=== PATIENT | male | born 1950 | race African-American/Black ===

== ENCOUNTER 2017-08-22 19:45 | Inpatient (IN) ==
[2017-08-22] MEDS ORDERED: DEXTROSE 50% 25 GM/50 ML VIAL IV PRN (20:40)
[2017-08-22] MEDS ORDERED: GLUCAGON 1 MG VIAL IM PRN (20:40)
[2017-08-22 21:03] LABS: ABG PCO2 40.5 MM HG (35-48); ABG PO2 85.6 MM HG (80-95); Allen Test Positive
[2017-08-22 21:04] LABS: ABG Base Excess 0.3 MMOL/L (-2.5-2.5); ABG HCO3 24.7 MMOL/L (20-26); ABG Oxygen Saturation 96.9 % (95-100)
[2017-08-22 21:23] LABS: Basophils % 0.6 % (0.0-0.8); Eosinophils # 0.1 10*3/uL (0.0-0.87); Eosinophils % 2.5 % (0.00-10.9); Hematocrit 37.7 VOL% (42.0-52.0); Hemoglobin 12.7 GM/DL (14.0-18.0); Immature Granulocytes % 0.2 %; Immature Granulocytes Absolute 0.01 #; Lymphocytes # 1.8 10*3/uL (1.4-4.0); Lymphocytes % 35.9 % (21.2-54.2); Mean Corpuscular HGB Conc 33.7 GM/DL (32-36); Mean Corpuscular Hemoglobin 28 PG (27-34); Mean Platelet Volume 10.4 FL (9.6-12.0); Monocytes # 0.3 10*3/uL (0.11-0.8); Monocytes % 5.8 % (1.7-12.7); Neutrophils # 2.8 10*3/uL (1.4-7.4); Platelet Count 154 T/CUMM (130-400); Red Blood Count 4.49 MC/CUMM (3.8-5.5); White Blood Count 5.1 T/CUMM (4-12)
[2017-08-22 21:49] LABS: Calcium 8.7 MG/DL (8.5-10.1); Osmolality,Calculated 283.8 MOS/KG (273-304); Potassium 4.1 MMOL/L (3.5-5.1); Troponin I Only 0.098 NG/ML (0.00-0.045)
[2017-08-22] MEDS: INSULIN REGULAR 100 UNIT/ML SUBCUT SCH (21:49)
[2017-08-22] MEDS: GABAPENTIN 300 MG CAPSULE PO SCH (21:49)
[2017-08-23] MEDS: INSULIN REGULAR 100 UNIT/ML SUBCUT SCH ×4 (08:18→21:48)
[2017-08-23] MEDS: GABAPENTIN 300 MG CAPSULE PO SCH ×2 (08:18→21:48)
[2017-08-23] MEDS: LISINOPRIL/HCTZ 20-25 MG TABLET PO SCH (08:18)
[2017-08-23] MEDS: chlordiazePOXIDE 10 MG CAPSULE PO SCH ×2 (11:16→21:48)
[2017-08-23] MEDS: SODIUM CHLORIDE 0.9% 1,000 ML IV SCH (22:16)
[2017-08-24] MEDS: ENOXAPARIN 40 MG/0.4 ML SYRINGE SUBCUT SCH (05:24)
[2017-08-24 06:09] LABS: Basophils % 0.9 % (0.0-0.8); Eosinophils # 0.1 10*3/uL (0.0-0.87); Eosinophils % 2.3 % (0.00-10.9); Hematocrit 37.3 VOL% (42.0-52.0); Hemoglobin 12.8 GM/DL (14.0-18.0); Immature Granulocytes % 0.2 %; Immature Granulocytes Absolute 0.01 #; Lymphocytes % 42.8 % (21.2-54.2); Mean Corpuscular HGB Conc 34.3 GM/DL (32-36); Mean Corpuscular Hemoglobin 29 PG (27-34); Mean Corpuscular Volume 83.1 FL (87-102); Mean Platelet Volume 10.5 FL (9.6-12.0); Monocytes # 0.4 10*3/uL (0.11-0.8); Monocytes % 8.5 % (1.7-12.7); Neutrophils # 2.1 10*3/uL (1.4-7.4); Neutrophils % 45.3 % (38.7-73.9); Platelet Count 172 T/CUMM (130-400); Red Blood Count 4.49 MC/CUMM (3.8-5.5); Red Cell Distribution Width 13.1 % (9.3-17.3); White Blood Count 4.7 T/CUMM (4-12)
[2017-08-24 06:26] LABS: Albumin 2.7 G/DL (3.4-5.0); Bilirubin,Total 0.4 MG/DL (0.2-1.0); Calcium 8.5 MG/DL (8.5-10.1); Osmolality,Calculated 289.7 MOS/KG (273-304); Potassium 4.2 MMOL/L (3.5-5.1); Total Protein 6.4 G/DL (6.4-8.3)
[2017-08-24] MEDS: GABAPENTIN 300 MG CAPSULE PO SCH ×2 (08:24→20:34)
[2017-08-24] MEDS: chlordiazePOXIDE 10 MG CAPSULE PO SCH ×2 (08:24→20:34)
[2017-08-24] MEDS: INSULIN REGULAR 100 UNIT/ML SUBCUT SCH ×4 (08:25→20:33)
[2017-08-24] MEDS: LISINOPRIL/HCTZ 20-25 MG TABLET PO SCH (08:27)
[2017-08-24] MEDS: SODIUM CHLORIDE 0.9% 1,000 ML IV SCH (15:33)
[2017-08-24] MEDS: DOCUSATE SODIUM 100 MG CAPSULE PO SCH ×2 (16:23→20:34)
[2017-08-24] MEDS ORDERED: metFORMIN 500 MG TABLET PO SCH (17:00)
[2017-08-24] MEDS: CARVEDILOL 3.125 MG TABLET PO SCH (20:34)
[2017-08-24] MEDS ORDERED: GABAPENTIN 300 MG CAPSULE PO SCH (21:00)
[2017-08-24] MEDS ORDERED: INSULIN GLARGINE 100 UNIT/ML SUBCUT SCH (21:00)
[2017-08-25] MEDS: ENOXAPARIN 40 MG/0.4 ML SYRINGE SUBCUT SCH (04:26)
[2017-08-25 05:18] LABS: Basophils % 0.5 % (0.0-0.8); Eosinophils # 0.1 10*3/uL (0.0-0.87); Eosinophils % 2.2 % (0.00-10.9); Hematocrit 36.2 VOL% (42.0-52.0); Hemoglobin 12.1 GM/DL (14.0-18.0); Immature Granulocytes % 0.2 %; Immature Granulocytes Absolute 0.01 #; Lymphocytes # 2.2 10*3/uL (1.4-4.0); Lymphocytes % 40.5 % (21.2-54.2); Mean Corpuscular HGB Conc 33.4 GM/DL (32-36); Mean Corpuscular Hemoglobin 28 PG (27-34); Mean Corpuscular Volume 84.8 FL (87-102); Mean Platelet Volume 10.2 FL (9.6-12.0); Monocytes # 0.5 10*3/uL (0.11-0.8); Monocytes % 8.5 % (1.7-12.7); Neutrophils # 2.7 10*3/uL (1.4-7.4); Neutrophils % 48.1 % (38.7-73.9); Platelet Count 158 T/CUMM (130-400); Red Blood Count 4.27 MC/CUMM (3.8-5.5); Red Cell Distribution Width 13.2 % (9.3-17.3); White Blood Count 5.5 T/CUMM (4-12)
[2017-08-25 05:51] LABS: Albumin 2.7 G/DL (3.4-5.0); Bilirubin,Total 0.6 MG/DL (0.2-1.0); Calcium 8.7 MG/DL (8.5-10.1); Total Protein 6.2 G/DL (6.4-8.3)
[2017-08-25 05:52] LABS: Osmolality,Calculated 288.7 MOS/KG (273-304); Potassium 4.1 MMOL/L (3.5-5.1)
[2017-08-25 05:55] LABS: Risk Ratio 2.82; VLDL CHOLESTEROL 33.6 MG/DL
[2017-08-25 06:11] LABS: Folate 14.2 NG/ML (5.4-24.0)
[2017-08-25] MEDS: INSULIN REGULAR 100 UNIT/ML SUBCUT SCH ×4 (08:30→20:57)
[2017-08-25] MEDS: LISINOPRIL/HCTZ 20-25 MG TABLET PO SCH (08:30)
[2017-08-25] MEDS: PANTOPRAZOLE 40 MG TABLET PO SCH (08:31)
[2017-08-25] MEDS: CARVEDILOL 3.125 MG TABLET PO SCH ×2 (08:31→20:56)
[2017-08-25] MEDS: chlordiazePOXIDE 10 MG CAPSULE PO SCH ×2 (08:31→20:56)
[2017-08-25] MEDS: DOCUSATE SODIUM 100 MG CAPSULE PO SCH ×2 (08:31→20:56)
[2017-08-25] MEDS: ALLOPURINOL 300 MG TABLET PO SCH (08:31)
[2017-08-25] MEDS: GABAPENTIN 300 MG CAPSULE PO SCH ×2 (08:31→20:56)
[2017-08-25] MEDS ORDERED: LORazepam 2 MG/1 ML VIAL IV PRN (09:22)
[2017-08-25] MEDS: SODIUM CHLORIDE 0.9% 1,000 ML IV SCH (12:12)
[2017-08-25] MEDS ORDERED: INSULIN GLARGINE 100 UNIT/ML SUBCUT SCH (13:00)
[2017-08-26] MEDS: ENOXAPARIN 40 MG/0.4 ML SYRINGE SUBCUT SCH (04:33)
[2017-08-26 05:48] LABS: Basophils % 0.6 % (0.0-0.8); Eosinophils # 0.1 10*3/uL (0.0-0.87); Eosinophils % 2.3 % (0.00-10.9); Hematocrit 36.4 VOL% (42.0-52.0); Hemoglobin 12.2 GM/DL (14.0-18.0); Immature Granulocytes % 0.2 %; Immature Granulocytes Absolute 0.01 #; Lymphocytes # 2.4 10*3/uL (1.4-4.0); Lymphocytes % 49.6 % (21.2-54.2); Mean Corpuscular HGB Conc 33.5 GM/DL (32-36); Mean Corpuscular Hemoglobin 29 PG (27-34); Mean Corpuscular Volume 85.8 FL (87-102); Mean Platelet Volume 10.3 FL (9.6-12.0); Monocytes # 0.5 10*3/uL (0.11-0.8); Neutrophils # 1.8 10*3/uL (1.4-7.4); Neutrophils % 37.3 % (38.7-73.9); Platelet Count 159 T/CUMM (130-400); Red Blood Count 4.24 MC/CUMM (3.8-5.5); Red Cell Distribution Width 13.1 % (9.3-17.3); White Blood Count 4.9 T/CUMM (4-12)
[2017-08-26 06:14] LABS: Eosinophils 1 % (0-10); Lymphocytes 52 % (20-55); Segmented Neutrophils 42 % (50-85); Total Cells Counted 100
[2017-08-26 06:15] LABS: Hypochromasia 1+; Microcytosis Slight
[2017-08-26 06:16] LABS: Atypical Lymphocytes Few; Platelet Estimate Adequate
[2017-08-26 06:29] LABS: Albumin 2.7 G/DL (3.4-5.0); Bilirubin,Total 0.4 MG/DL (0.2-1.0); Calcium 8.9 MG/DL (8.5-10.1); Osmolality,Calculated 290.4 MOS/KG (273-304); Potassium 4.3 MMOL/L (3.5-5.1); Total Protein 6.4 G/DL (6.4-8.3)
[2017-08-26] MEDS ORDERED: traMADol 50 MG TABLET PO PRN (08:14)
[2017-08-26] MEDS: PANTOPRAZOLE 40 MG TABLET PO SCH (09:21)
[2017-08-26] MEDS: INSULIN REGULAR 100 UNIT/ML SUBCUT SCH ×4 (09:21→22:35)
[2017-08-26] MEDS: DOCUSATE SODIUM 100 MG CAPSULE PO SCH ×2 (09:21→22:35)
[2017-08-26] MEDS: chlordiazePOXIDE 10 MG CAPSULE PO SCH ×2 (09:21→22:41)
[2017-08-26] MEDS: LISINOPRIL/HCTZ 20-25 MG TABLET PO SCH (09:21)
[2017-08-26] MEDS: MULTIVITAMIN (CENTRUM) TABLET PO SCH (09:21)
[2017-08-26] MEDS: CARVEDILOL 3.125 MG TABLET PO SCH ×2 (09:21→22:35)
[2017-08-26] MEDS: GABAPENTIN 300 MG CAPSULE PO SCH ×2 (09:21→22:35)
[2017-08-26] MEDS: ALLOPURINOL 300 MG TABLET PO SCH (09:21)
[2017-08-26] MEDS: FOLIC ACID 1 MG TABLET PO SCH (09:21)
[2017-08-26] MEDS: THIAMINE 100 MG TABLET PO SCH (09:21)
[2017-08-26] MEDS: SODIUM CHLORIDE 0.9% 1,000 ML IV SCH (12:13)
[2017-08-26] MEDS: INSULIN GLARGINE 100 UNIT/ML SUBCUT SCH (22:35)
[2017-08-27] MEDS: ENOXAPARIN 40 MG/0.4 ML SYRINGE SUBCUT SCH (04:50)
[2017-08-27 05:11] LABS: Basophils % 0.9 % (0.0-0.8); Eosinophils # 0.1 10*3/uL (0.0-0.87); Eosinophils % 2.9 % (0.00-10.9); Hematocrit 36.1 VOL% (42.0-52.0); Hemoglobin 12.3 GM/DL (14.0-18.0); Lymphocytes # 2.4 10*3/uL (1.4-4.0); Mean Corpuscular HGB Conc 34.1 GM/DL (32-36); Mean Corpuscular Hemoglobin 28 PG (27-34); Mean Platelet Volume 10.3 FL (9.6-12.0); Monocytes # 0.4 10*3/uL (0.11-0.8); Monocytes % 8.6 % (1.7-12.7); Neutrophils # 1.6 10*3/uL (1.4-7.4); Neutrophils % 35.6 % (38.7-73.9); Platelet Count 177 T/CUMM (130-400); Red Blood Count 4.35 MC/CUMM (3.8-5.5); White Blood Count 4.5 T/CUMM (4-12)
[2017-08-27 05:41] LABS: Albumin 2.7 G/DL (3.4-5.0); Bilirubin,Total 0.6 MG/DL (0.2-1.0); Calcium 9.3 MG/DL (8.5-10.1); Osmolality,Calculated 288.4 MOS/KG (273-304); Potassium 4.2 MMOL/L (3.5-5.1); Total Protein 6.4 G/DL (6.4-8.3)
[2017-08-27 05:42] LABS: Eosinophils 4 % (0-10); Giant Platelets Few; Hypochromasia 1+; Lymphocytes 59 % (20-55); Platelet Estimate Normal; Segmented Neutrophils 28 % (50-85); Total Cells Counted 100
[2017-08-27 05:43] LABS: Atypical Lymphocytes Few; Microcytosis Slight
[2017-08-27] MEDS: INSULIN REGULAR 100 UNIT/ML SUBCUT SCH ×4 (09:08→21:35)
[2017-08-27] MEDS: THIAMINE 100 MG TABLET PO SCH (09:09)
[2017-08-27] MEDS: FOLIC ACID 1 MG TABLET PO SCH (09:09)
[2017-08-27] MEDS: GABAPENTIN 300 MG CAPSULE PO SCH ×2 (09:09→21:34)
[2017-08-27] MEDS: DOCUSATE SODIUM 100 MG CAPSULE PO SCH ×2 (09:09→21:33)
[2017-08-27] MEDS: PANTOPRAZOLE 40 MG TABLET PO SCH (09:09)
[2017-08-27] MEDS: CARVEDILOL 3.125 MG TABLET PO SCH ×2 (09:09→21:33)
[2017-08-27] MEDS: ALLOPURINOL 300 MG TABLET PO SCH (09:09)
[2017-08-27] MEDS: chlordiazePOXIDE 10 MG CAPSULE PO SCH ×2 (09:09→21:33)
[2017-08-27] MEDS: MULTIVITAMIN (CENTRUM) TABLET PO SCH (09:09)
[2017-08-27] MEDS: LISINOPRIL/HCTZ 20-25 MG TABLET PO SCH (09:10)
[2017-08-27] MEDS: SODIUM CHLORIDE 0.9% 1,000 ML IV SCH (12:32)
[2017-08-27] MEDS: INSULIN GLARGINE 100 UNIT/ML SUBCUT SCH (21:34)
[2017-08-28 04:36] LABS: Basophils % 0.8 % (0.0-0.8); Eosinophils # 0.1 10*3/uL (0.0-0.87); Eosinophils % 2.4 % (0.00-10.9); Hematocrit 35.8 VOL% (42.0-52.0); Hemoglobin 12.3 GM/DL (14.0-18.0); Immature Granulocytes % 0.2 %; Immature Granulocytes Absolute 0.01 #; Lymphocytes # 2.8 10*3/uL (1.4-4.0); Lymphocytes % 56.3 % (21.2-54.2); Mean Corpuscular HGB Conc 34.4 GM/DL (32-36); Mean Corpuscular Hemoglobin 29 PG (27-34); Mean Corpuscular Volume 83.1 FL (87-102); Mean Platelet Volume 10.3 FL (9.6-12.0); Monocytes # 0.5 10*3/uL (0.11-0.8); Monocytes % 9.1 % (1.7-12.7); Neutrophils # 1.6 10*3/uL (1.4-7.4); Neutrophils % 31.2 % (38.7-73.9); Platelet Count 179 T/CUMM (130-400); Red Blood Count 4.31 MC/CUMM (3.8-5.5); Red Cell Distribution Width 13.1 % (9.3-17.3)
[2017-08-28 05:02] LABS: Atypical Lymphocytes Few; Eosinophils 2 % (0-10); Hypochromasia 1+; Lymphocytes 52 % (20-55); Microcytosis Slight; Ovalocytes Slight; Platelet Estimate Normal; Segmented Neutrophils 38 % (50-85); Total Cells Counted 100
[2017-08-28 05:06] LABS: Albumin 2.7 G/DL (3.4-5.0); Bilirubin,Total 0.5 MG/DL (0.2-1.0); Calcium 9.1 MG/DL (8.5-10.1); Potassium 4.1 MMOL/L (3.5-5.1); Total Protein 6.2 G/DL (6.4-8.3)
[2017-08-28] MEDS: ENOXAPARIN 40 MG/0.4 ML SYRINGE SUBCUT SCH (07:59)
[2017-08-28] MEDS: INSULIN REGULAR 100 UNIT/ML SUBCUT SCH ×4 (08:45→22:46)
[2017-08-28] MEDS: DOCUSATE SODIUM 100 MG CAPSULE PO SCH ×2 (09:18→20:31)
[2017-08-28] MEDS: GABAPENTIN 300 MG CAPSULE PO SCH ×2 (09:18→20:31)
[2017-08-28] MEDS: CARVEDILOL 3.125 MG TABLET PO SCH ×2 (09:18→20:31)
[2017-08-28] MEDS: ALLOPURINOL 300 MG TABLET PO SCH (09:18)
[2017-08-28] MEDS: FOLIC ACID 1 MG TABLET PO SCH (09:18)
[2017-08-28] MEDS: THIAMINE 100 MG TABLET PO SCH (09:18)
[2017-08-28] MEDS: PANTOPRAZOLE 40 MG TABLET PO SCH (09:18)
[2017-08-28] MEDS: MULTIVITAMIN (CENTRUM) TABLET PO SCH (09:18)
[2017-08-28] MEDS: LISINOPRIL/HCTZ 20-25 MG TABLET PO SCH (09:18)
[2017-08-28] MEDS: chlordiazePOXIDE 10 MG CAPSULE PO SCH ×2 (09:19→20:31)
[2017-08-28] MEDS: SODIUM CHLORIDE 0.9% 1,000 ML IV SCH (11:38)
[2017-08-28] MEDS: CHLORHEXIDINE 4% SOLN 118 ML BOTTLE TOP SCH ×2 (14:41→20:34)
[2017-08-28] MEDS: CHLORHEXIDINE 0.12% ORAL RINSE 60 ML BOTTLE SWISH/SPIT SCH (20:30)
[2017-08-28] MEDS: INSULIN GLARGINE 100 UNIT/ML SUBCUT SCH (21:34)
[2017-08-29] MEDS: ENOXAPARIN 40 MG/0.4 ML SYRINGE SUBCUT SCH (03:37)
[2017-08-29 04:31] LABS: Basophils % 0.7 % (0.0-0.8); Eosinophils # 0.1 10*3/uL (0.0-0.87); Hematocrit 35.4 VOL% (42.0-52.0); Hemoglobin 12.2 GM/DL (14.0-18.0); Lymphocytes % 42.7 % (21.2-54.2); Mean Corpuscular HGB Conc 34.5 GM/DL (32-36); Mean Corpuscular Hemoglobin 29 PG (27-34); Mean Corpuscular Volume 82.9 FL (87-102); Mean Platelet Volume 9.7 FL (9.6-12.0); Monocytes # 0.5 10*3/uL (0.11-0.8); Monocytes % 10.1 % (1.7-12.7); Neutrophils % 44.5 % (38.7-73.9); Platelet Count 182 T/CUMM (130-400); Red Blood Count 4.27 MC/CUMM (3.8-5.5); Red Cell Distribution Width 12.9 % (9.3-17.3); White Blood Count 4.6 T/CUMM (4-12)
[2017-08-29 05:00] LABS: Osmolality,Calculated 291.4 MOS/KG (273-304); Potassium 4.2 MMOL/L (3.5-5.1)
[2017-08-29] MEDS ORDERED: CEFUROXIME INJ 1,500 MG in SYRINGE 1 EACH IV ONE (05:00)
[2017-08-29 05:06] LABS: ABG Base Excess 4.1 MMOL/L (-2.5-2.5); ABG HCO3 27.9 MMOL/L (20-26); ABG Oxygen Saturation 90.2 % (95-100); ABG PCO2 44.6 MM HG (35-48); ABG PH 7.423 (7.35-7.45); ABG PO2 58.6 MM HG (80-95); ABG TCO2 25.7 MMOL/L (23-27); Allen Test Positive; Pt O2 Delivery Device Room Air
[2017-08-29] MEDS ORDERED: PAPAVERINE 60 MG/2 ML VIAL ONE (05:21)
[2017-08-29] MEDS ORDERED: TISSUE ADHESIVE 1 EACH APPLICATOR TOP ONE (05:21)
[2017-08-29] MEDS ORDERED: VANCOMYCIN 1,000 MG VIAL ONE (05:22)
[2017-08-29] MEDS ORDERED: DIAZEPAM 5 MG TABLET PO ONE (05:30)
[2017-08-29] MEDS ORDERED: FAMOTIDINE 20 MG TABLET PO ONE (05:30)
[2017-08-29] MEDS: CARVEDILOL 3.125 MG TABLET PO SCH ×2 (05:36→09:19)
[2017-08-29] MEDS ORDERED: TRANEXAMIC ACID 1,000 MG/10 ML VIAL ONE (06:09)
[2017-08-29 07:34] LABS: ABG Base Excess 1.7 MMOL/L (-2.5-2.5); ABG PCO2 51.6 MM HG (35-48); ABG PH 7.348 (7.35-7.45); ABG TCO2 25.2 MMOL/L (23-27); Glucose Heart Surgery 261 MG/DL (74-106); Hematocrit Heart Surgery 36.9 PERCENT (42-52); Ionized Calcium Arterial 1.32 MMOL/L (1.21-1.46); PCO2 Patient Temp Arterial 51.6 MMHG; PH Patient Temp Arterial 7.348; Patient Temperature 37 CELCIUS; Potassium Heart/CVR 4.5 MMOL/L (3.5-5.1); Sodium Heart/CVR 140 MMOL/L (135-145)
[2017-08-29 08:55] LABS: Hematocrit Heart Surgery 27.9 PERCENT (42-52); PCO2 Patient Temp Venous 41.4 MM HG; PH Patient Temp Venous 7.438; PO2 Patient Temp Venous 42.4 MM HG; Potassium Heart/CVR 5.7 MMOL/L (3.5-5.1); VBG Base Excess 3.5 MEQ/L (0-4); VBG HCO3 27.3 MEQ/L (24-28); VBG Oxygen Saturation 78.6 %; VBG PCO2 41.4 MMHG (41-51); VBG PH 7.438; VBG PO2 42.4 MMHG (17-40)
[2017-08-29] MEDS ORDERED: VECURONIUM 10 MG VIAL IV ONE (09:03)
[2017-08-29] MEDS ORDERED: HEPARIN/NACL 0.9% 2 UNITS/ML 500 ML IV ONE (09:03)
[2017-08-29] MEDS ORDERED: PHENYLEPHRINE DRIP 20 MG/250 ML PREMIX IV ONE (09:03)
[2017-08-29] MEDS ORDERED: CALCIUM CHLORIDE 1,000 MG/10 ML VIAL IV ONE (09:03)
[2017-08-29] MEDS ORDERED: ETOMIDATE 40 MG/20 ML VIAL IV ONE (09:03)
[2017-08-29] MEDS ORDERED: THROMBIN TOPICAL (RECOMBINANT) 5,000 UNIT VIAL TOP ONE (09:07)
[2017-08-29] MEDS: INSULIN REGULAR 100 UNIT/ML SUBCUT SCH ×4 (09:18→20:18)
[2017-08-29] MEDS: DOCUSATE SODIUM 100 MG CAPSULE PO SCH ×2 (09:18→21:27)
[2017-08-29] MEDS: MULTIVITAMIN (CENTRUM) TABLET PO SCH (09:18)
[2017-08-29] MEDS: chlordiazePOXIDE 10 MG CAPSULE PO SCH ×2 (09:19→21:59)
[2017-08-29] MEDS: LISINOPRIL/HCTZ 20-25 MG TABLET PO SCH (09:19)
[2017-08-29] MEDS: CHLORHEXIDINE 0.12% ORAL RINSE 60 ML BOTTLE SWISH/SPIT SCH ×3 (09:19→21:27)
[2017-08-29] MEDS: GABAPENTIN 300 MG CAPSULE PO SCH (09:19)
[2017-08-29] MEDS: PANTOPRAZOLE 40 MG TABLET PO SCH (09:19)
[2017-08-29] MEDS: CHLORHEXIDINE 4% SOLN 118 ML BOTTLE TOP SCH (09:19)
[2017-08-29] MEDS: FOLIC ACID 1 MG TABLET PO SCH (09:19)
[2017-08-29] MEDS: ALLOPURINOL 300 MG TABLET PO SCH (09:20)
[2017-08-29] MEDS: THIAMINE 100 MG TABLET PO SCH (09:20)
[2017-08-29 09:45] LABS: ABG Base Excess 2.8 MMOL/L (-2.5-2.5); ABG HCO3 26.9 MMOL/L (20-26); ABG PCO2 35.3 MM HG (35-48); ABG PH 7.479 (7.35-7.45); ABG TCO2 23.9 MMOL/L (23-27); Glucose Heart Surgery 333 MG/DL (74-106); Hematocrit Heart Surgery 29.3 PERCENT (42-52); Hemoglobin Heart Surgery 9.5 G/DL (14.0-18.0); Ionized Calcium Arterial 1.27 MMOL/L (1.21-1.46); PCO2 Patient Temp Arterial 35.3 MMHG; PH Patient Temp Arterial 7.479; Patient Temperature 37 CELCIUS; Potassium Heart/CVR 5.3 MMOL/L (3.5-5.1); Sodium Heart/CVR 133 MMOL/L (135-145)
[2017-08-29] MEDS ORDERED: HEPARIN 10,000 UNIT/10 ML VIAL ONE (10:02)
[2017-08-29] MEDS ORDERED: MANNITOL 12.5 GM/50 ML VIAL IV ONE (10:02)
[2017-08-29] MEDS ORDERED: ALBUMIN 25% 25 GM/100 ML VIAL IV ONE (10:02)
[2017-08-29] MEDS ORDERED: SODIUM BICARBONATE 50 MEQ/50 ML SYRINGE IV ONE (10:02)
[2017-08-29] MEDS ORDERED: DEXTROSE 5% KCL 20 MEQ 20 MEQ/1,000 ML BAG IV ONE (10:02)
[2017-08-29] MEDS ORDERED: MAGNESIUM SULFATE 1 GM/2 ML VIAL ONE (10:02)
[2017-08-29] MEDS ORDERED: PROTAMINE SULFATE 250 MG/25 ML VIAL IV ONE (10:02)
[2017-08-29] MEDS ORDERED: FUROSEMIDE 20 MG/2 ML VIAL ONE (10:02)
[2017-08-29] MEDS ORDERED: methylPREDNISolone SOD SUC 1,000 MG/8 ML VIAL ONE (10:02)
[2017-08-29] MEDS ORDERED: PROTAMINE SULFATE 50 MG/5 ML VIAL IV ONE (10:03)
[2017-08-29] MEDS ORDERED: ALBUMIN 5% 12.5 GM in PREMIX 1 EACH IV PRN (10:26)
[2017-08-29] MEDS ORDERED: CALCIUM CHLORIDE 1,000 MG/10 ML SYRINGE IV PRN (10:26)
[2017-08-29] MEDS ORDERED: POTASSIUM CHLORIDE RIDER 10 MEQ in PREMIX 1 EACH IV PRN (10:26)
[2017-08-29] MEDS ORDERED: CHLORHEXIDINE 4% SOLN 118 ML BOTTLE TOP PRN (10:26)
[2017-08-29] MEDS ORDERED: MIDAZOLAM 2 MG/2 ML VIAL IV PRN (10:26)
[2017-08-29] MEDS ORDERED: SODIUM CHLORIDE 0.9% 250 ML IV PRN (10:26)
[2017-08-29] MEDS ORDERED: MAGNESIUM SULF RIDER 4 GM in PREMIX 1 EACH IV PRN (10:26)
[2017-08-29] MEDS ORDERED: ONDANSETRON 4 MG/2 ML VIAL IV PRN (10:26)
[2017-08-29] MEDS ORDERED: DEXTROSE 50% 25 GM/50 ML VIAL IV PRN ×2 (10:26)
[2017-08-29] MEDS ORDERED: POTASSIUM CHLORIDE RIDER 20 MEQ in PREMIX 1 EACH IV PRN (10:26)
[2017-08-29] MEDS ORDERED: ACETAMINOPHEN 650 MG SUPP RECTAL PRN (10:26)
[2017-08-29] MEDS ORDERED: MAGNESIUM SULF RIDER 2 GM in PREMIX 1 EACH IV PRN (10:26)
[2017-08-29] MEDS ORDERED: INSULIN REGULAR DRIP 100 ML IV SCH (10:30)
[2017-08-29] MEDS ORDERED: NITROGLYCERIN DRIP 50 MG/250 ML BOTTLE IV ONE (10:36)
[2017-08-29 10:57] LABS: ABG Base Excess 3.2 MMOL/L (-2.5-2.5); ABG HCO3 27.3 MMOL/L (20-26); ABG PCO2 35.7 MM HG (35-48); ABG TCO2 23.7 MMOL/L (23-27); Glucose Heart Surgery 256 MG/DL (74-106); Hematocrit Heart Surgery 34.6 PERCENT (42-52); Hemoglobin Heart Surgery 11.2 G/DL (14.0-18.0)
[2017-08-29] MEDS: SODIUM CHLORIDE 0.45% 1,000 ML IV SCH ×2 (10:58)
[2017-08-29] MEDS: SODIUM CHLORIDE 0.9% 1,000 ML IV SCH (10:59)
[2017-08-29 11:04] LABS: Basophils % 0.2 % (0.0-0.8); Eosinophils # 0.1 10*3/uL (0.0-0.87); Eosinophils % 0.7 % (0.00-10.9); Hematocrit 32.8 VOL% (42.0-52.0); Hemoglobin 11.1 GM/DL (14.0-18.0); Immature Granulocytes % 0.3 %; Immature Granulocytes Absolute 0.03 #; Lymphocytes # 2.4 10*3/uL (1.4-4.0); Lymphocytes % 27.4 % (21.2-54.2); Mean Corpuscular HGB Conc 33.8 GM/DL (32-36); Mean Corpuscular Hemoglobin 28 PG (27-34); Mean Corpuscular Volume 83.9 FL (87-102); Mean Platelet Volume 9.9 FL (9.6-12.0); Monocytes # 0.6 10*3/uL (0.11-0.8); Neutrophils # 5.7 10*3/uL (1.4-7.4); Neutrophils % 64.4 % (38.7-73.9); Platelet Count 165 T/CUMM (130-400); Red Blood Count 3.91 MC/CUMM (3.8-5.5); White Blood Count 8.8 T/CUMM (4-12)
[2017-08-29 11:13] LABS: INR 1.1; Partial Thromboplastin Time 25.7 SECS (0-40)
[2017-08-29] MEDS ORDERED: EPINEPHrine 1 MG/ML VIAL ONE ×2 (11:14→11:25)
[2017-08-29] MEDS ORDERED: NITROGLYCERIN DRIP 50 MG/250 ML BOTTLE IV PRN (11:20)
[2017-08-29] MEDS ORDERED: SEVOFLURANE 1 UNIT/15 MINUTE INH ONE (11:24)
[2017-08-29] MEDS ORDERED: PHENYLEPHRINE 10 MG/1 ML VIAL IV ONE (11:25)
[2017-08-29] MEDS ORDERED: MIDAZOLAM 10 MG/2 ML VIAL ONE (11:25)
[2017-08-29] MEDS ORDERED: SODIUM CHLORIDE 0.9% 250 ML IV ONE (11:25)
[2017-08-29] MEDS ORDERED: SODIUM CHLORIDE 0.9% 100 ML IV ONE (11:25)
[2017-08-29 11:36] LABS: Atypical Lymphocytes Few; Band Neutrophils 5 % (0-10); Calcium 9.3 MG/DL (8.5-10.1); Eosinophils 1 % (0-10); Hypochromasia 1+; Lymphocytes 29 % (20-55); Osmolality,Calculated 291.4 MOS/KG (273-304); Potassium 4.1 MMOL/L (3.5-5.1); Segmented Neutrophils 61 % (50-85); Total Cells Counted 100
[2017-08-29 11:37] LABS: Microcytosis Slight; Platelet Estimate Adequate
[2017-08-29] MEDS: INSULIN REGULAR 100 UNIT/ML IV PRN ×3 (11:37→19:25)
[2017-08-29 11:41] LABS: Lactic Acid 2.4 MMOL/L (0.4-2.0)
[2017-08-29] MEDS: MORPHINE 10 MG/1 ML VIAL IV PRN ×3 (11:50→19:20)
[2017-08-29 13:39] LABS: ABG Base Excess 3.5 MMOL/L (-2.5-2.5); ABG HCO3 27.6 MMOL/L (20-26); ABG Oxygen Saturation 99.4 % (95-100); ABG PCO2 40.8 MM HG (35-48); ABG PH 7.442 (7.35-7.45); ABG TCO2 24.8 MMOL/L (23-27); Glucose Heart Surgery 201 MG/DL (74-106); Hemoglobin Heart Surgery 11.4 G/DL (14.0-18.0); Potassium Heart/CVR 3.7 MMOL/L (3.5-5.1)
[2017-08-29] MEDS: MORPHINE 4 MG/1 ML VIAL IV PRN (14:20)
[2017-08-29] MEDS: CEFUROXIME INJ 1,500 MG in SYRINGE 1 EACH IV SCH (18:13)
[2017-08-29] MEDS: INSULIN GLARGINE 100 UNIT/ML SUBCUT SCH (20:18)
[2017-08-29] MEDS ORDERED: FUROSEMIDE 40 MG/4 ML VIAL IV ONE (21:15)
[2017-08-30] MEDS: SODIUM CHLORIDE 0.45% 1,000 ML IV SCH ×3 (00:12→15:50)
[2017-08-30] MEDS: INSULIN REGULAR 100 UNIT/ML IV PRN (03:11)
[2017-08-30 03:17] LABS: Basophils % 0.2 % (0.0-0.8); Hematocrit 34.7 VOL% (42.0-52.0); Hemoglobin 11.6 GM/DL (14.0-18.0); Immature Granulocytes % 0.3 %; Immature Granulocytes Absolute 0.05 #; Lymphocytes # 1.3 10*3/uL (1.4-4.0); Lymphocytes % 7.4 % (21.2-54.2); Mean Corpuscular HGB Conc 33.4 GM/DL (32-36); Mean Corpuscular Hemoglobin 28 PG (27-34); Mean Corpuscular Volume 84.8 FL (87-102); Mean Platelet Volume 9.8 FL (9.6-12.0); Monocytes # 0.3 10*3/uL (0.11-0.8); Monocytes % 1.8 % (1.7-12.7); Neutrophils # 15.2 10*3/uL (1.4-7.4); Neutrophils % 90.3 % (38.7-73.9); Platelet Count 190 T/CUMM (130-400); Red Blood Count 4.09 MC/CUMM (3.8-5.5); Red Cell Distribution Width 13.2 % (9.3-17.3); White Blood Count 16.9 T/CUMM (4-12)
[2017-08-30 03:41] LABS: Calcium 8.6 MG/DL (8.5-10.1); Osmolality,Calculated 284.7 MOS/KG (273-304); Potassium 4.6 MMOL/L (3.5-5.1)
[2017-08-30 03:42] LABS: Band Neutrophils 37 % (0-10); Lymphocytes 4 % (20-55); Segmented Neutrophils 58 % (50-85); Total Cells Counted 100
[2017-08-30] MEDS: CEFUROXIME INJ 1,500 MG in SYRINGE 1 EACH IV SCH ×2 (06:09→17:44)
[2017-08-30] MEDS ORDERED: METOPROLOL TARTRATE 5 MG/5 ML VIAL IV ONE (06:45)
[2017-08-30] MEDS: INSULIN REGULAR 100 UNIT/ML SUBCUT SCH ×5 (07:42→21:41)
[2017-08-30] MEDS ORDERED: METOPROLOL TARTRATE 25 MG TABLET PO SCH (09:00)
[2017-08-30] MEDS: THIAMINE 100 MG TABLET PO SCH (09:11)
[2017-08-30] MEDS: DOCUSATE SODIUM 100 MG CAPSULE PO SCH ×2 (09:11→21:44)
[2017-08-30] MEDS: FUROSEMIDE 40 MG TABLET PO SCH (09:12)
[2017-08-30] MEDS: ASPIRIN EC 325 MG TABLET PO SCH (09:12)
[2017-08-30] MEDS: CLOPIDOGREL 75 MG TABLET PO SCH (09:12)
[2017-08-30] MEDS: MULTIVITAMIN (CENTRUM) TABLET PO SCH (09:12)
[2017-08-30] MEDS: PANTOPRAZOLE 40 MG TABLET PO SCH (09:12)
[2017-08-30] MEDS: chlordiazePOXIDE 10 MG CAPSULE PO SCH ×2 (09:45→21:44)
[2017-08-30] MEDS: CHLORHEXIDINE 0.12% ORAL RINSE 60 ML BOTTLE SWISH/SPIT SCH ×2 (09:46→21:44)
[2017-08-30] MEDS: MORPHINE 10 MG/1 ML VIAL IV PRN ×2 (12:10→15:46)
[2017-08-30] MEDS: SODIUM CHLORIDE 0.9% 1,000 ML IV SCH (17:43)
[2017-08-30] MEDS: ATORVASTATIN 40 MG TABLET PO SCH (21:41)
[2017-08-30] MEDS: INSULIN GLARGINE 100 UNIT/ML SUBCUT SCH (21:44)
[2017-08-31] MEDS: INSULIN REGULAR 100 UNIT/ML SUBCUT SCH ×6 (01:18→21:50)
[2017-08-31] MEDS: MORPHINE 4 MG/1 ML VIAL IV PRN (02:49)
[2017-08-31 07:03] LABS: Basophils % 0.1 % (0.0-0.8); Eosinophils % 0.1 % (0.00-10.9); Hematocrit 36.2 VOL% (42.0-52.0); Hemoglobin 11.8 GM/DL (14.0-18.0); Immature Granulocytes % 0.7 %; Lymphocytes # 1.9 10*3/uL (1.4-4.0); Lymphocytes % 12.8 % (21.2-54.2); Mean Corpuscular HGB Conc 32.6 GM/DL (32-36); Mean Corpuscular Hemoglobin 28 PG (27-34); Mean Corpuscular Volume 86.8 FL (87-102); Mean Platelet Volume 9.8 FL (9.6-12.0); Monocytes # 0.7 10*3/uL (0.11-0.8); Neutrophils # 11.8 10*3/uL (1.4-7.4); Neutrophils % 81.3 % (38.7-73.9); Platelet Count 190 T/CUMM (130-400); Red Blood Count 4.17 MC/CUMM (3.8-5.5); Red Cell Distribution Width 13.4 % (9.3-17.3); White Blood Count 14.5 T/CUMM (4-12)
[2017-08-31 07:33] LABS: Calcium 8.8 MG/DL (8.5-10.1); Osmolality,Calculated 285.7 MOS/KG (273-304); Potassium 4.4 MMOL/L (3.5-5.1)
[2017-08-31] MEDS ORDERED: KETOROLAC 30 MG/1 ML VIAL IV ONE (08:58)
[2017-08-31] MEDS: CLOPIDOGREL 75 MG TABLET PO SCH (09:15)
[2017-08-31] MEDS: DOCUSATE SODIUM 100 MG CAPSULE PO SCH ×2 (09:15→21:50)
[2017-08-31] MEDS: CARVEDILOL 3.125 MG TABLET PO SCH ×2 (09:16→21:50)
[2017-08-31] MEDS: ASPIRIN EC 325 MG TABLET PO SCH (09:16)
[2017-08-31] MEDS: MULTIVITAMIN (CENTRUM) TABLET PO SCH (09:16)
[2017-08-31] MEDS: FUROSEMIDE 40 MG TABLET PO SCH (09:16)
[2017-08-31] MEDS: CHLORHEXIDINE 0.12% ORAL RINSE 60 ML BOTTLE SWISH/SPIT SCH ×2 (09:16→21:50)
[2017-08-31] MEDS: PANTOPRAZOLE 40 MG TABLET PO SCH (09:16)
[2017-08-31] MEDS: THIAMINE 100 MG TABLET PO SCH (09:16)
[2017-08-31] MEDS: SODIUM CHLORIDE 0.9% 1,000 ML IV SCH (11:51)
[2017-08-31] MEDS ORDERED: SODIUM PHOSPHATE ENEMA 133 ML BOTTLE RECTAL PRN (18:23)
[2017-08-31] MEDS ORDERED: BISACODYL 5 MG TABLET PO PRN (21:00)
[2017-08-31] MEDS: ATORVASTATIN 40 MG TABLET PO SCH (21:50)
[2017-08-31] MEDS: INSULIN GLARGINE 100 UNIT/ML SUBCUT SCH (21:50)
[2017-09-01] MEDS: INSULIN REGULAR 100 UNIT/ML SUBCUT SCH ×6 (01:06→22:41)
[2017-09-01 03:58] LABS: Basophils % 0.2 % (0.0-0.8); Eosinophils # 0.1 10*3/uL (0.0-0.87); Eosinophils % 0.6 % (0.00-10.9); Hemoglobin 10.3 GM/DL (14.0-18.0); Immature Granulocytes % 0.4 %; Immature Granulocytes Absolute 0.04 #; Lymphocytes # 2.6 10*3/uL (1.4-4.0); Lymphocytes % 25.1 % (21.2-54.2); Mean Corpuscular HGB Conc 32.2 GM/DL (32-36); Mean Corpuscular Hemoglobin 28 PG (27-34); Mean Corpuscular Volume 87.2 FL (87-102); Mean Platelet Volume 10.5 FL (9.6-12.0); Monocytes # 0.7 10*3/uL (0.11-0.8); Monocytes % 7.1 % (1.7-12.7); Neutrophils # 6.9 10*3/uL (1.4-7.4); Neutrophils % 66.6 % (38.7-73.9); Platelet Count 192 T/CUMM (130-400); Red Blood Count 3.67 MC/CUMM (3.8-5.5); Red Cell Distribution Width 13.3 % (9.3-17.3); White Blood Count 10.4 T/CUMM (4-12)
[2017-09-01 04:20] LABS: Calcium 8.6 MG/DL (8.5-10.1); Osmolality,Calculated 293.4 MOS/KG (273-304); Potassium 3.9 MMOL/L (3.5-5.1)
[2017-09-01] MEDS: ASPIRIN EC 325 MG TABLET PO SCH (09:00)
[2017-09-01] MEDS: DOCUSATE SODIUM 100 MG CAPSULE PO SCH ×2 (09:00→22:42)
[2017-09-01] MEDS: THIAMINE 100 MG TABLET PO SCH (09:00)
[2017-09-01] MEDS: CHLORHEXIDINE 0.12% ORAL RINSE 60 ML BOTTLE SWISH/SPIT SCH ×2 (09:00→22:43)
[2017-09-01] MEDS: FUROSEMIDE 40 MG TABLET PO SCH (09:00)
[2017-09-01] MEDS: PANTOPRAZOLE 40 MG TABLET PO SCH (09:00)
[2017-09-01] MEDS: MULTIVITAMIN (CENTRUM) TABLET PO SCH (09:00)
[2017-09-01] MEDS: CLOPIDOGREL 75 MG TABLET PO SCH (09:00)
[2017-09-01] MEDS: CARVEDILOL 3.125 MG TABLET PO SCH ×2 (09:00→22:42)
[2017-09-01] MEDS: traMADol 50 MG TABLET PO PRN ×2 (09:51→22:42)
[2017-09-01] MEDS: SODIUM CHLORIDE 0.9% 1,000 ML IV SCH (11:44)
[2017-09-01] MEDS: INSULIN GLARGINE 100 UNIT/ML SUBCUT SCH (22:41)
[2017-09-01] MEDS: ATORVASTATIN 40 MG TABLET PO SCH (22:42)
[2017-09-02] MEDS: INSULIN REGULAR 100 UNIT/ML SUBCUT SCH ×4 (01:47→12:50)
[2017-09-02 05:11] LABS: Calcium 8.6 MG/DL (8.5-10.1); Osmolality,Calculated 289.3 MOS/KG (273-304)
[2017-09-02] MEDS: DOCUSATE SODIUM 100 MG CAPSULE PO SCH (08:07)
[2017-09-02] MEDS: THIAMINE 100 MG TABLET PO SCH (08:07)
[2017-09-02] MEDS: CLOPIDOGREL 75 MG TABLET PO SCH (08:07)
[2017-09-02] MEDS: MULTIVITAMIN (CENTRUM) TABLET PO SCH (08:07)
[2017-09-02] MEDS: FUROSEMIDE 40 MG TABLET PO SCH (08:08)
[2017-09-02] MEDS: PANTOPRAZOLE 40 MG TABLET PO SCH (08:08)
[2017-09-02] MEDS: CARVEDILOL 3.125 MG TABLET PO SCH (08:08)
[2017-09-02] MEDS: ASPIRIN EC 325 MG TABLET PO SCH (08:08)
[2017-09-02] MEDS: CHLORHEXIDINE 0.12% ORAL RINSE 60 ML BOTTLE SWISH/SPIT SCH (08:10)
[2017-09-02] MEDS ORDERED: LISINOPRIL 2.5 MG TABLET PO SCH (10:30)
[2017-09-02 11:46] VITALS: BP 144/88
== END 2017-09-02 15:10 | disposition home health service (06) | DRG 236 ==
LOC: N.3EOUT 19:45 → N.TELES 19:45 → EDSTATUS 08-29 07:30 → N.CVR 08-29 09:16 → N.ICU 08-29 19:01 → N.TELES 08-30 15:36
PROVIDERS: ADMIT Thoracic Surgery (Cardiothoracic Vascular Surgery); ATTEND Thoracic Surgery (Cardiothoracic Vascular Surgery)